=== PATIENT | female | born 1965 | race Two or more races ===

== ENCOUNTER 2017-01-22 03:00 | Emergency (ER) | payer MEDICAID ==
[~2017-01-22] VITALS: Ht 160 cm; Wt 55.8 kg
[~2017-01-22 03:00] MED LIST: CYCLOBENZAPRINE10 MG ORAL; IBUPROFEN600 MG ORAL; NYQUIL D COLD295 M1 PO; TYLENOL650 MG/20. ORAL; ZOFRAN ODT4 MG ORAL
[2017-01-22 03:35] VITALS: BP 138/83
[2017-01-22] MEDS ORDERED: PREDNISONE20 MG ORAL (05:46)
[2017-01-22] MEDS ORDERED: BENADRYL25 M3 PO (05:46)
[2017-01-22] MEDS ORDERED: ZYRTEC10 M3 ORAL (05:46)
[2017-01-22 05:52] VITALS: BP 138/83
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
== END 2017-01-22 05:52 | disposition home or self-care (01) ==
LOC: EMR 03:35
DX: R21 Rash and other nonspecific skin eruption (principal)
CPT/HCPCS: 99284